=== PATIENT | female | born 1975 | race Caucasian/White ===

== ENCOUNTER 2022-02-14 12:55 | Emergency (ER) | payer OTHER ==
[~2022-02-14] VITALS: Ht 162.6 cm; Wt 65.0 kg
[2022-02-14] MEDS ORDERED: IV RINGERS SOLUTION,LACTATED 1,000 ML IV ONE (13:15)
[2022-02-14] MEDS ORDERED: IOHEXOL 300 MG/ML 75 ML VIAL. IV ONE (13:15)
--- NOTE | 2022-02-14 13:15 | PHYS DOC ---
Past History Past Surgical History: , Hysterectomy General Adult EDM: Chief Complaint: NAUSEA/VOMITING/DIARRHEA HPI: HPI: Patient is a 46-year-old female coming in via EMS for vomiting and abdominal pain. Patient says that started this morning when she woke up. Patient is unsure of how many times she vomited aside the emesis is nonbloody or bilious. Patient says the pain is in her low abdomen and she initially thought it was gas, took a anti-gas medication without improvement. Says the pain has been gradually getting worse. Last p.o. intake was coffee at 9 AM, no solid p.o. intake since yesterday. She denies any diarrhea, last bowel movement 2 days ago. No fevers, cough, denies dysuria hematuria, denies any vaginal bleeding or discharge. Patient has a history of IBS, PCOS. She has had sections and a partial hysterectomy, still has her left ovary. Patient also had hives yesterday and took Benadryl and Zyrtec before going to bed. Patient given 8 mg of Zofran, 100 mcg of fentanyl, 30 mg of Toradol prior to arrival by EMS. Review of Systems: Review of Systems: All other systems within normal limits except for as noted in the HPI Current Medications: Current Meds: Current Medications Medications (Trade) Dose Ordered Sig/Vanessa Start Time Stop Time Status Last Admin Dose Admin Fentanyl Citrate (Fentanyl 2ml Vial) 75 mcg 1X ONCE 02/14/22 13:15 02/14/22 13:16 UNV Lactated Ringer's 1,000 ml @ 1,000 mls/hr 1X ONCE 02/14/22 13:15 02/14/22 14:14 UNV Allergies: Allergies: Allergies Coded Allergies Type Severity Reaction Last Updated Verified erythromycin base Allergy Unknown 02/14/22 Yes Physical Exam: PE: Constitutional: Well developed, well nourished, no acute distress, non-toxic appearance. [] HENT: Normocephalic, atraumatic, bilateral external ears normal, nose normal. [] Eyes: PERRLA, conjunctiva normal, no discharge. [] Neck: No rigidity, supple, no stridor. [] Cardiovascular: Regular rate and rhythm, brisk cap refill [] Lungs & Thorax: Non labored symmetric respirations, no tachypnea or respiratory distress [] Abdomen: Soft, nondistended, bilateral lower abdominal tenderness with guarding. Skin: Warm, dry, no erythema, no rash. [] Back: Unremarkable Extremities: No deformities, range of motion grossly intact, no lower extremity edema [] Neurologic: Alert and oriented X 3, no focal deficits noted. [] Psychologic: Affect normal, judgement normal, mood normal. [] Current Patient Data: Vital Signs: Vital Signs Date Time Temp Pulse Resp B/P (MAP) Pulse Ox O2 Delivery O2 Flow Rate FiO2 02/14/22 12:56 97.9 88 18 97/52 (67) 98 Room Air EKG: EKG: [] Radiology/Procedures: Radiology/Procedures: [address] [address] IMAGING REPORT Signed PATIENT: EDWIN MUELLER SACCOUNT: [id number] : 1975 LOCATION: ER AGE: 46 SEX: F EXAM STATUS: REG ER ORD. PHYSICIAN: MARTHA POWELL MD REASON: LLQ pain since this am-HX OF IBS. Given 75 ml omni 300 PROCEDURE: CT ABD PELV W/ IV CONTRST ONLY CT ABDOMEN+PELVIS W dated 02/14/2022 2:03 PM Indication:Reason: LLQ pain since this am-HX OF IBS. Given 75 ml omni 300 / Spl. Instructions: / History: Comparison: CT 01/30/2013. Technique: CT images were performed using infusion of 75 mL Omnipaque 300. One or more of the following individualized dose reduction techniques were utilized for this examination: 1. Automated exposure control 2. Adjustment of the mA and/or kV according to patient size 3. Use of iterative reconstruction technique Findings: The lung bases are clear. The liver and spleen are homogeneous in density and normal in configuration. There is suggestion of a trace of free fluid adjacent to the inferior tip of the spleen. Both kidneys enhance with contrast. No mass or obstruction is seen. The adrenal glands are not enlarged. The pancreas appears normal. No retroperitoneal or mesenteric adenopathy is seen. There is no apparent abdominal soft tissue mass. There is suggestion of mild edema within the mesenteric fat, and there are scattered bubbles of free air in the upper abdomen, distributed diffusely, but most evident in the left upper quadrant. Images through the pelvis show no abnormality of the distal ureters. The bladder was not well distended, but appears normal. No pelvic or inguinal adenopathy is seen. There is no apparent pelvic soft tissue mass. There is a small amount of free fluid in the pelvis. No localized collection such as an abscess is seen. There is an area of gas density near the mid sigmoid colon. This appears to be extraluminal. The adjacent colon is not well-distended, but may have some wall thickening. There are also areas of stool collection adjacent to the extraluminal air that cannot be confirmed as intraluminal. No other inflammatory process is seen. IMPRESSION: There is some free fluid and free intraperitoneal air. A more localized gas collection is seen in the pelvis in the area of the sigmoid mesentery, and there are some adjacent findings suggesting inflammation of the colon with perforation and possible extraluminal stool as well. No abscess is seen. FOR INTERNAL CODING PURPOSES Critical result: Findings discussed with MARTHA POWELL MD at 02/14/2022 2:17 PM. RESULT CODE: (C) Electronically signed by: Sandra Vazquez Jr., MD (02/14/2022 2:17 PM) [id number] DICTATED AND SIGNED BY: SANDRA VAZQUEZ Jr, MD DATE: 02/14/22 1405 CC: MARTHA POWELL MD; LUIZ LUCERO MD ~ [] Heart Score: C/O Chest Pain: No Risk Factors: Risk Factors: DM, Current or recent (<one month) smoker, HTN, HLP, family history of CAD, obesity. Risk Scores: Score 0 - 3: 2.5% MACE over next 6 weeks - Discharge Home Score 4 - 6: 20.3% MACE over next 6 weeks - Admit for Clinical Observation Score 7 - 10: 72.7% MACE over next 6 weeks - Early Invasive Strategies Course & Med Decision Making: Course & Med Decision Making Pertinent Labs and Imaging studies reviewed. (See chart for details) Patient with bowel perforation, discussed case with Dr. Nieto at [facility]. Accepted by hospitalist, Dr. Anguiano. Patient stable when tr ansferred to [facility] [] Aime Disclaimer: Aime Disclaimer: This electronic medical record was generated, in whole or in part, using a voice recognition dictation system. Departure Departure: Impression: Primary Impression: Perforated bowel Disposition: 02 SHORT TERM HOSPITAL Condition: GUARDED Referrals: LUIZ LUCERO MD (PCP) MARTHA POWELL MD Feb 14, 2022 13:15
[2022-02-14] MEDS ORDERED: CONTRAST GIVEN. MC PRN (13:30)
[2022-02-14 13:36] LABS: BASO % 0 % (0-3); EOS % 0 % (0-3); HEMATOCRIT 44.5 % (36.0-47.0); LYMPH # 0.5 x10^3/uL (1.0-4.8); LYMPH % 5 % (24-48); MEAN CORPUSCULAR HEMOGLOBIN 31 pg (25-35); MEAN CORPUSCULAR HGB CONC 34 g/dL (31-37); MEAN CORPUSCULAR VOLUME 91 fL (79-100); MONO # 0.3 x10^3/uL (0.0-1.1); MONO % 3 % (0-9); NEUT # 8.3 x10^3uL (1.8-7.7); NEUT % 91 % (31-73); PLATELET COUNT 306 x10^3/uL (140-400); RED BLOOD COUNT 4.92 x10^6/uL (3.50-5.40); RED CELL DISTRIBUTION WIDTH 13.6 % (11.5-14.5); WHITE BLOOD COUNT 9.1 x10^3/uL (4.0-11.0)
[2022-02-14 13:40] LABS: CALCIUM 8.9 mg/dL (8.5-10.1); CREATININE 0.7 mg/dL (0.6-1.0); GFR 89.3
[2022-02-14 13:44] LABS: CLARITY,URINE CLEAR; COLOR,URINE YELLOW; GLUCOSE,URINE NEG (NEG)
[2022-02-14 13:45] LABS: BACTERIA,URINE 0 /HPF (0-FEW); NITRITE,URINE NEG (NEG); RBC,URINE 0 /HPF (0-2); SQUAMOUS EPITHELIAL CELL,UR OCC /LPF; UROBILINOGEN,URINE 0.2 mg/dL (0.2 mg/dL); WBC,URINE 0 /HPF (0-4)
[2022-02-14 13:47] LABS: ALBUMIN 3.9 g/dL (3.4-5.0); ALBUMIN/GLOBULIN RATIO 1.2 (1.0-1.7); TOTAL BILIRUBIN 0.6 mg/dL (0.2-1.0); TOTAL PROTEIN 7.1 g/dL (6.4-8.2)
[2022-02-14] MEDS ORDERED: MORPHINE SULFATE 4 MG/ML DISP.SYRIN. IV ONE (14:15)
--- NOTE | 2022-02-14 14:20 | RAD ---
CT ABDOMEN+PELVIS W dated 02/14/2022 2:03 PM Indication:Reason: LLQ pain since this am-HX OF IBS. Given 75 ml omni 300 / Spl. Instructions: / His tory: Comparison: CT 01/30/2013. Technique: CT images were performed using infusion of 75 mL Omnipaque 300. One or more of the following individualized dose reduction techniques were utilized for this examinat ion: 1. Automated exposure control 2. Adjustment of the mA and/or kV according to patient size 3. Use of iterative reconstruction technique Findings: The lung bases are clear. The liver and spleen are homogeneous in density and normal in configuration . There is suggestion of a trace of free fluid adjacent to the inferior tip of the spleen. Both kidne ys enhance with contrast. No mass or obstruction is seen. The adrenal glands are not enlarged. The pa ncreas appears normal. No retroperitoneal or mesenteric adenopathy is seen. There is no apparent abdo danna soft tissue mass. There is suggestion of mild edema within the mesenteric fat, and there are sc attered bubbles of free air in the upper abdomen, distributed diffusely, but most evident in the left upper quadrant. Images through the pelvis show no abnormality of the distal ureters. The bladder was not well distend ed, but appears normal. No pelvic or inguinal adenopathy is seen. There is no apparent pelvic soft ti ssue mass. There is a small amount of free fluid in the pelvis. No localized collection such as an ab scess is seen. There is an area of gas density near the mid sigmoid colon. This appears to be extralu danna. The adjacent colon is not well-distended, but may have some wall thickening. There are also ar eas of stool collection adjacent to the extraluminal air that cannot be confirmed as intraluminal. No other inflammatory process is seen. IMPRESSION: There is some free fluid and free intraperitoneal air. A more localized gas collection is seen in the pelvis in the area of the sigmoid mesentery, and there are some adjacent findings suggesting inflamm ation of the colon with perforation and possible extraluminal stool as well. No abscess is seen. FOR INTERNAL CODING PURPOSES Critical result: Findings discussed with MARTHA POWELL MD at 02/14/2022 2:17 PM. RESULT CODE: (C) Electronically signed by: Isrrael Vazquez Jr., MD (02/14/2022 2:17 PM) [id number]
[2022-02-14] MEDS ORDERED: PROCHLORPERAZINE 10 MG/2 ML VIAL. IV ONE (14:30)
[2022-02-14] MEDS ORDERED: PIPERACILLIN/TAZOBACTAM 3.375 GM in IV NORMAL SALINE 50ML 50 ML IV ONE (14:30)
[2022-02-14] MEDS ORDERED: PIPERACILLIN/TAZOBACTAM 3.375 GM VIAL IV ONE (14:32)
[2022-02-14] MEDS ORDERED: IV NORMAL SALINE 50ML 50 ML ONE (14:32)
[2022-02-14] MEDS ORDERED: HYDROmorphone PF 1 MG/ML DISP.SYRIN ONE (14:49)
[2022-02-14] MEDS ORDERED: HYDROmorphone PF 1 MG/ML DISP.SYRIN IVP ONE (15:00)
[2022-02-14 15:20] VITALS: BP 112/66
[2022-02-14 16:32] LABS: INFLUENZA A PATIENT NEGATIVE (NEGATIVE); INFLUENZA B PATIENT NEGATIVE (NEGATIVE)
== END 2022-02-14 15:55 | disposition short-term general hospital (02) ==
LOC: ER 12:55
DX: K63.1 Perforation of intestine (nontraumatic) (principal); Z20.822 Contact with and (suspected) exposure to COVID-19; Z98.890 Other specified postprocedural states; Z90.710 Acquired absence of both cervix and uterus; Z88.1 Allergy status to other antibiotic agents
CPT/HCPCS: 36415; 74177; 80053; 81001; 83690; 85025; 87428; 96361; 96365; 96375; 99285; C9803; J0780; J1170; J2270; J2543; J3010; J7120; U0003